=== PATIENT | male | born 1960 | race Caucasian/White ===

== ENCOUNTER → 2019-09-22 06:56 | Outpatient (CLI) | payer SELFPAY ==
[2019-09-11 13:27] VITALS: BMI 33.9
--- NOTE | 2019-09-22 06:56 | ECHOD_ITS ---
Reason For Study: SYNCOPE Procedure This was a 2D Doppler, Color Flow transthoracic echocardiogram. Exam performed in department. Left Ventricle Normal LV size. The estimated ejection fraction is 55 %. No evidence for diastolic dysfunction. No regional wall motion abnormalities noted. Right Ventricle Normal right ventricle. Normal systolic function. Atria Normal left atrium. Normal right atrium. Normal atrial septum. Mitral Valve There is no mitral valve stenosis. No mitral valve insufficiency. Tricuspid Valve There is no tricuspid stenosis. No tricuspid valve insufficiency. Unable to estimate RV systolic pressure due to insufficient tricuspid regurgitant envelope. Aortic Valve Aortic sclerosis, no stenosis. There is no aortic stenosis. No aortic valve insufficiency. Pulmonic Valve There is no pulmonic valvular stenosis. No pulmonic valve insufficiency. Great Vessels Normal aortic root. Pericardium/Pleural No pericardial effusion. MMode/2D Measurements & Calculations LVIDd: 5.4 cm IVSd: 1.2 cm Ao root diam: 3.4 cm LVIDs: 3.9 cm LVPWd: 1.0 cm RVDd: 4.2 cm FS: 28.1 % LAV(MOD-bp): 55.3 ml LA A4 area: 19.0 cm2 LA dimension(2D): 3.6 cm LAV(MOD-bp) Indexed: 25.7 ml/m2 LAV(MOD-sp2): 54.9 ml LAV(MOD-sp4): 54.9 ml RA A4 area: 18.4 cm2 Time Measurements MV dec time: 0.23 sec Doppler Measurements & Calculations MV E max j carlos: 55.5 cm/sec Lat Peak E' J Carlos: 5.9 cm/sec Med Peak E' J Carlos: 5.7 cm/sec MV A max j carlos: 73.2 cm/sec E/E' lat: 9.5 E/E' med: 9.8 MV E/A: 0.76 Ao V2 max: 112.8 cm/sec LV V1 max: 85.8 cm/sec PA V2 max: 135.2 cm/sec Ao max P.1 mmHg LV V1 max P.9 mmHg Ao V2 mean: 81.7 cm/sec Ao mean P.8 mmHg Ao V2 VTI: 20.9 cm Interpretation Summary The estimated ejection fraction is 55 %. No evidence for diastolic dysfunction. Aortic sclerosis, no stenosis. Ordering Physician: Paloma Doll Referring Physician: Francisco Bronson Performed By: Trish Trinh, JOHANNA, RVT
--- NOTE | 2019-09-22 11:53 | STRESSREP ---
Stress Test Report Date: 09/22/2019 Procedure: Exercise tolerance test/imaging study Indications: Syncope Consent: Per the patient Procedure: The patient exercised on a Rahat protocol for 10 minutes achieving a peak heart rate of 153 bpm (95 % predicted maximal heart rate) with a peak blood pressure 212/82 mmHg and a peak MET capacity of 11.7 METs. The baseline ECG demonstrated normal sinus rhythm. The peak exercise ECG demonstrated no significant ischemic changes. There is about half to [address] depression in the inferior and lateral leads. EKG during recovery revealed no significant ischemic changes [There were no cardiac dysrhythmias pretest, during exercise, or recovery]. The functional capacity was considered above average for age. There was [no complaint of chest discomfort during exercise or recovery]. The examination was discontinued secondary to neck discomfort. Impression: 1. Technically adequate (percent predicted maximal heart rate greater than 85%) exercise tolerance test 2. Stress test is negative for exercise-induced EKG changes of ischemia 3. The test test is negative for exercise-induced chest pain 4. Functional capacity is above average for age 5. Nuclear images pending Myocardial perfusion imaging study: Technique: The patient was injected with 14.1 mCi of technetium 99m Cardiolite and subsequently rest SPECT Cardiolite nuclear imaging was obtained in the horizontal long, vertical long, and short axis views. The patient exercised on a Rahat protocol. Please see above for details. The patient was injected with 44.3 mCi of technetium 99m Cardiolite and subsequently stress SPECT Cardiolite nuclear imaging was obtained in the horizontal long, vertical long, and short axis views. A gated Cardiolite study at peak stress was obtained. Interpretation: Rest and stress SPECT Cardiolite nuclear imaging status post realignment, normalization, and attenuation correction, demonstrates normal myocardial radioisotope uptake after attenuation correction. Prior to attenuation correction there is mildly decreased radioisotope uptake in the inferior wall which is suggestive of diaphragmatic attenuation artifact. The gated Cardiolite study demonstrates no significant regional wall motion abnormalities. The reported LVEF is 58 %. Impression: 1. There is no evidence of significant ischemia or infarction. 2. The gated Cardiolite study reports an LVEF of 58 %. This note was generated with [employer] software. It may contain incorrect words, spelling, and punctuation that were not noted in checking the note before signing.
== END ==
PROVIDERS: PCP Family Medicine; Referring Provider Specialist; Visit Provider Specialist
DX: R55 Syncope and collapse (principal)
CPT/HCPCS: 78452; 93017; 93306; A9500; A4216

== ENCOUNTER → 2025-05-02 | Outpatient (CLI) | payer MEDICARE, OTHER, SELFPAY ==
--- NOTE | 2025-05-02 09:44 | MRI_ITS ---
PROCEDURE: LOWER EXT/JT ONLY/W CONTRAST 05/02/2025 REASON FOR EXAM: JOINT DERANGEMENT OF RT HIP, PAIN, STRAIN OF ADDUCTOR TECHNIQUE: Procedure Code: [id number] Modality: MR Procedure: LOWER EXT/JT ONLY/W CONTRAST Multiplanar multisequence MRI of the right hip was performed following arthrography of the right hip COMPARISON: Radiographs of the right hip dated May 02, 2025 FINDINGS: Bone marrow signal reveal cystic changes in the femoral head. There is no fracture. There is no destructive bone lesion. The acetabulum has a normal signal. Degenerative changes of the hip joint are present. Abnormal signal is present in the superior labrum is concerning for tear. No intra-articular loose body seen. The intrinsic ligaments around the hip appear normal. No abnormal signal seen within the gluteal tendons or muscle. Normal signal in the proximal hamstrings. Limited visualization of the pelvis reveals no abnormality. MRI/Lower Ext/Jt Only/W Contrast IMPRESSION: Osteoarthritic changes of the right hip with cystic changes in the femoral head . Degenerative changes of the acetabulum superiorly with a superior labral tear. No loose body or joint effusion. Unremarkable signal within the intrinsic ligaments of the hip. Reading Location: [id number]
--- NOTE | 2025-05-02 10:50 | RAD_ITS ---
PROCEDURE: ARTHROGRAM HIP W/ MRI 05/02/2025 REASON FOR EXAM: Chronic right hip pain. TECHNIQUE: Procedure Code: RADARH Modality: DX Procedure: ARTHROGRAM HIP W/ MRI The procedure as well as the benefits and possible complications including infection and bleeding were explained to the patient. Informed consent was obtained. The overlying skin was prepped and draped in the usual sterile fashion. Following local anesthetic application, puncture of the hip joint was performed utilizing a 22 gauge spinal needle. 2 cc of Isovue-300 was injected for confirmation. Following this, 10 cc of dilute MRI contrast was injected. Fluoroscopy: 59 seconds. Radiation dose: 18.4 mGy. 1 spot view was obtained. The procedure COMPARISON: None FINDINGS: Successful right hip arthrogram for MRI examination. Patient tolerated the procedure well. RAD/Arthrogram Hip w/ MRI IMPRESSION: Successful right hip arthrogram for MRI examination. The patient tolerated the procedure well. Reading Location: [facility]
[2025-05-02] MEDS: Lidocaine 2% (5ml sdv) 5 ML VIAL.MPF INFILT (10:53)
[2025-05-02] MEDS: Gadoterate Meglumine Diluted 10 ML, Iopamidol 5 ML, Lidocaine 1% (20 ml mdv) 5 ML, Epin... INTRAARTIC (10:54)
[2025-05-02] MEDS: Iopamidol 10 ML in Syringe 1 EACH 600 ML INTRAARTIC (10:54)
== END | disposition home or self-care (01) ==
LOC: RAD 09:39
PROVIDERS: PCP Family Medicine; Referring Provider Physician Assistant Surgical; Visit Provider Physician Assistant Surgical
DX: M24.851 Other specific joint derangements of right hip, not elsewhere classified (principal); S76.211D Strain of adductor muscle, fascia and tendon of right thigh, subsequent encounter; M25.551 Pain in right hip
CPT/HCPCS: 27093; 73722; 77002; Q9967